=== PATIENT | female | born 1960 | race Caucasian/White ===

== ENCOUNTER 2016-07-16 08:51 | Emergency (ER) | payer MEDICAID ==
[~2016-07-16] VITALS: Wt 63.8 kg
[~2016-07-16 08:51] MED LIST: CEPH-443 PO; CETI10CA PO; FAMO-18 PO; LEVO112T2 PO; LOPE2CAP PO; MAG355OR15 PO; ONDA4TAB8 PO; PRED20TA PO
[2016-07-16] MEDS ORDERED: morphine 4 MG/ML VIAL IV STA (10:20)
[2016-07-16] MEDS ORDERED: SOD CHLORIDE 0.9% 1,000 ML IV STA (10:20)
[2016-07-16] MEDS ORDERED: ONDANSETRON 4 MG INJ IV STA (10:20)
[2016-07-16 10:41] LABS: ADD SCAN DIFF NO
--- NOTE | 2016-07-16 10:44 | RADRPT ---
PROCEDURE: XR Chest. CLINICAL INDICATION: Cough. Abdominal pain. TECHNIQUE: Single frontal view. COMPARISON: None. FINDINGS: The lungs are clear. The heart size is normal. There is no pleural effusion. There is no pneumothorax. IMPRESSION: 1. Normal chest radiograph. RPTAT: QQ .Modesto Marsh MD, MD Date Time Electronically viewed and signed by .Modesto Marsh MD, on 07/16/2016 10:43 .R/
[2016-07-16 10:45] LABS: ABNORMAL IP MESSAGE 1; BASOPHIL # 0.1 10^3/ul (0.0-0.1); BASOPHILS % 0.6 % (0.0-2.0); EOSINOPHILS # 0.2 10^3/ul (0.0-0.5); EOSINOPHILS % 1.9 % (0.0-7.0); HEMATOCRIT 41.4 % (37.0-47.0); HEMOGLOBIN 13.3 g/dl (12.0-16.0); LYMPHOCYTES # 0.4 10^3/ul (0.8-2.9); LYMPHOCYTES % 4.9 % (15.0-51.0); MEAN CORPUSCULAR HEMOGLOBIN 28.1 pg (29.0-33.0); MEAN CORPUSCULAR HGB CONC 32.1 g/dl (32.0-37.0); MEAN CORPUSCULAR VOLUME 87.5 fl (82.0-101.0); MEAN PLATELET VOLUME 11.8 fl (7.4-10.4); MONOCYTE # 0.7 10^3/ul (0.3-0.9); MONOCYTES % 7.9 % (0.0-11.0); NEUTROPHIL # 7.1 10^3/ul (1.6-7.5); NEUTROPHILS % 84.2 % (39.0-77.0); PLATELET COUNT 107 10^3/UL (140-415); RED BLOOD COUNT 4.73 10^6/ul (4.20-5.40); RED CELL DISTRIBUTION WIDTH 12.4 % (11.5-14.5); WHITE BLOOD COUNT 8.4 10^3/ul (4.8-10.8)
[2016-07-16 11:02] LABS: ALBUMIN 4.1 g/dl (3.3-4.9)
[2016-07-16 11:03] LABS: POTASSIUM 3.9 mmol/L (3.5-5.1)
[2016-07-16 11:05] LABS: BILIRUBIN,INDIRECT 0.8 mg/dl (0-1.1); BILIRUBIN,TOTAL 0.8 mg/dl (0.2-1.3); CREATININE 0.65 mg/dl (0.44-1.00)
[2016-07-16 11:06] LABS: ALBUMIN/GLOBULIN RATIO 1.41
--- NOTE | 2016-07-16 11:21 | RADRPT ---
PROCEDURE: CT abdomen and pelvis without contrast. CLINICAL INDICATION: Abdominal pain. TECHNIQUE: CT scan of the abdomen and pelvis without contrast was performed on a multi-slice CT [facility] . Sagittal and coronal reformatted images were obtained from the axial source images. DLP 523.1 mGycm. CTDIvol 9.7 mGy COMPARISON: None FINDINGS: The lung bases are clear. There is limited evaluation of the solid viscera from the lack of IV con trast. The kidneys are symmetric bilaterally with no evidence of renal or ureteral calculi. There is no hy dronephrosis or perinephric stranding. There is normal density of the liver with no gross focal lesion or biliary ductal dilatation. The gallbladder is unremarkable without inflammation. The spleen is at the upper limits of normal in size. The adrenal glands are within normal limits wi thout mass. The pancreas is unremarkable without focal lesion or surrounding inflammatory changes. There is no bowel obstruction or focal bowel inflammation. The appendix is unremarkable. There is a moderately diffusely fecal filled colon. There is no free air or free fluid. There are no enlarged lymph nodes. The aorta is unremarkable and there is no acute osseous abnormality. Degenerative changes are seen i n the lumbar spine. The uterus is absent. IMPRESSION: No evidence of renal or ureteral calculi or hydronephrosis. No evidence of bowel obstruction or inflammation. There is no appendicitis. There is a fecal fille d colon. RPTAT: AA .Oscar Shetty MD, MD Date Time Electronically viewed and signed by .Oscar Shetty MD, MD on 07/16/2016 11:20 .Lola/
[2016-07-16] MEDS ORDERED: OSELTAMIVIR 75 MG CAP PO ONE (11:30)
[2016-07-16] MEDS ORDERED: OSEL30CA PO (11:58)
[2016-07-16] MEDS ORDERED: IBUP800T25 PO (11:58)
[2016-07-16] MEDS ORDERED: ONDA4TAB14 PO (11:58)
--- NOTE | 2016-07-16 12:09 | ERD ---
ER Documentation Chief Complaint Date/Time DATE: 07/16/16 TIME: 12:05 Chief Complaint DIZZINESS SUDDEN ONSET SINCE LAST NIGHT. NO NEURO DEF. NAUSEA . NO INJURY HPI 55-year-old female. The patient has a history of lupus on steroids and immunomodulators. The patient presents with approximately 24 hours of symptoms that include multiple complaints. The patient describes generalized malaise, dry nonproductive cough, abdominal pain with cramping, mild nausea that is associated with nonbloody nonbilious emesis. A single loose watery stool. She denies any headache or rash. Mild lightheadedness but no vertigo. ROS All systems reviewed and are negative except as per history of present illness. Medications Home Meds Active Scripts Ondansetron (Ondansetron Odt) 4 Mg Tab.rapdis, 4 MG PO Q6H Y for NAUSEA AND/OR VOMITING, #10 TAB Prov:MADDY FITCH MD 07/16/16 Ibuprofen* (Motrin*) 800 Mg Tab, 800 MG PO Q6H Y for PAIN AND OR ELEVATED TEMP, #30 TAB Prov:MADDY FITCH MD 07/16/16 Oseltamivir Phosphate* (Tamiflu*) 30 Mg Capsule, 30 MG PO BID for 5 Days, CAP Prov:MADDY FITCH MD 07/16/16 Reported Medications Levothyroxine Sodium* (Synthroid*) 112 Mcg Tablet, 112 MCG PO AC BREAKFAST, TAB 03/28/15 Discontinued Scripts Cetirizine Hcl* (Zyrtec*) 10 Mg Capsule, 10 MG PO DAILY, #20 TAB Prov:JEANETTE MELVIN MD 06/01/15 Prednisone* (Prednisone*) 20 Mg Tab, 40 MG PO DAILY for 5 Days, TAB Prov:JEANETTE MELVIN MD 06/01/15 Cephalexin* (Keflex*) 500 Mg Capsule, 500 MG PO QID for 5 Days, CAP Prov:JEANETTE MELVIN MD 06/01/15 Famotidine* (Pepcid*) 20 Mg Tablet, 20 MG PO BID, #28 TAB Prov:YESICA KAN MD 03/28/15 Mag Hydrox/Al Hydrox/Simeth (Maalox Ms Liquid) 360 Ml Oral.susp, 2 ML PO TID, # 24 OZ Prov:YESICA KAN MD 03/28/15 Ondansetron Hcl* (Zofran*) 4 Mg Tablet, 4 MG PO Q6H for NAUSEA AND/OR VOMITING, #12 TAB Prov:YESICA KAN MD 03/28/15 Loperamide Hcl* (Imodium*) 2 Mg Capsule, 2 MG PO .AFTER EA LOOSE BM Y for DIARRHEA, #10 TAB Prov:YESICA KAN MD 03/28/15 Allergies Allergies: Coded Allergies: No Known Allergy (Unverified , 03/28/15) PMhx/Soc History of Surgery: No Anesthesia Reaction: No Hx Neurological Disorder: No Hx Respiratory Disorders: No Hx Cardiac Disorders: No Hx Psychiatric Problems: No Hx Miscellaneous Medical Probl: Yes (LUPUS) Hx Alcohol Use: No Hx Substance Use: No Hx Tobacco Use: No Smoking Status: Never smoker FmHx Family History: No diabetes Physical Exam Vitals Vital Signs Date Time Temp Pulse Resp B/P Pulse Ox O2 Delivery O2 Flow Rate FiO2 07/16/16 09:05 98.8 92 20 154/74 98 Physical Exam General: Slightly ill-appearing but no significant distress Head: Normocephalic, atraumatic. Eyes: Pupils equally reactive, EOM intact ENT: Moist mucous membranes Neck: Supple, no lymphadenopathy Respiratory: Lungs clear bilaterally, no distress Cardiovascular: RRR, no murmurs, rubs, or gallops Abdominal: Soft, mild diffuse tenderness without rebound or guarding : Deferred MSK: No edema, no unilateral swelling, 5/5 strength Neurologic: Alert and oriented, moving all extremities, normal speech, no focal weakness, no cerebellar signs, no meningismus Skin: No rash Psych: Normal mood Result Diagram: 07/16/16 1035 07/16/16 1030 Results 24 hrs Laboratory Tests Test 07/16/16 10:30 07/16/16 10:35 Alanine Aminotransferase (ALT/SGPT) 66IU/L Albumin 4.1g/dl Albumin/Globulin Ratio 1.41 Alkaline Phosphatase 75IU/L Anion Gap 17 Aspartate Amino Transf (AST/SGOT) 70IU/L Blood Urea Nitrogen 10mg/dl Calcium Level 9.0mg/dl Carbon Dioxide Level 28mmol/L Chloride Level 103mmol/L Creatinine 0.65mg/dl Direct Bilirubin 0.00mg/dl Globulin 2.90g/dl Glucose Level 127mg/dl Indirect Bilirubin 0.8mg/dl Lipase 69U/L Potassium Level 3.9mmol/L Sodium Level 144mmol/L Total Bilirubin 0.8mg/dl Total Protein 7.0g/dl Basophils # 0.110^3/ul Basophils % 0.6% Eosinophils # 0.210^3/ul Eosinophils % 1.9% Hematocrit 41.4% Hemoglobin 13.3g/dl Lymphocytes # 0.410^3/ul Lymphocytes % 4.9% Mean Corpuscular Hemoglobin 28.1pg Mean Corpuscular Hemoglobin Concent 32.1g/dl Mean Corpuscular Volume 87.5fl Mean Platelet Volume 11.8fl Monocytes # 0.710^3/ul Monocytes % 7.9% Neutrophils # 7.110^3/ul Neutrophils % 84.2% Nucleated Red Blood Cells # 0.010^3/ul Nucleated Red Blood Cells % 0.0/100WBC Platelet Count 05892^3/UL Red Blood Count 4.7310^6/ul Red Cell Distribution Width 12.4% White Blood Count 8.410^3/ul Current Medications Medications (Trade) Dose Ordered Sig/Twyla Route PRN Reason Start Time Stop Time Status Last Admin Dose Admin Sodium Chloride (NS) 1,000 ml @ 1,000 mls/hr Q1H STAT IV 07/16/16 10:20 07/16/16 11:19 DC 07/16/16 10:42 Morphine Sulfate (morphine) 4 mg ONCE STAT IV 07/16/16 10:20 07/16/16 10:21 DC 07/16/16 10:42 Ondansetron HCl (Zofran Inj) 4 mg ONCE STAT IV 07/16/16 10:20 07/16/16 10:21 DC 07/16/16 10:42 Oseltamivir Phosphate (Tamiflu) 75 mg ONCE ONCE PO 07/16/16 11:30 07/16/16 11:31 DC 07/16/16 11:24 Procedures/MDM EKG, MONITORS, & DIAGNOSTIC IMAGING: Chest x-ray: I reviewed and interpreted a 1 view of the chest Mediastinum: No enlargement Cardiac silhouette: No cardiomegaly Airspace: Clear lung del angel bilaterally without evidence of pneumothorax Bones: No evidence of fracture CT abdomen and pelvis: IMPRESSION: No evidence of renal or ureteral calculi or hydronephrosis. No evidence of bowel obstruction or inflammation. There is no appendicitis. There is a fecal filled colon. RPTAT: AA LAB INTERPRETATION: Positive influenza A MEDICAL DECISION MAKING: The patient presents with flulike symptoms including generalized malaise, subjective fevers, myalgias. The patient most likely has influenza however given her lupus, immune compromised state broad differential exists including acute intra-abdominal process, acute bacterial infection or pneumonia. For these reasons broad workup was initiated to evaluate and rule out these processes. ER COURSE: The patient was given IV fluids and pain medication with dramatic improvement of her symptoms. Influenza A positive. Patient initiated on Tamiflu. While the patient is slightly high risk given her immune compromised state the patient is otherwise well-appearing, afebrile with normal white count. I discussed inpatient versus outpatient management. Given the patient's age I believe she will likely do well as an outpatient. I did however discuss return precautions including worsening symptoms, inability to tolerate oral intake. Patient verbalized understanding. She has good outpatient follow-up. A trial of outpatient management would be reasonable. I kept the patient and/or family informed of laboratory and diagnostic imaging results throughout the emergency room course. DISPOSITION PLAN: We discussed follow up with the patient's primary care doctor within 24 to 48 hours as needed. We also discussed return to the emergency room for worsening symptoms or worsening condition. Discharge Medications: Tamiflu, Motrin, Zofran Departure Diagnosis: Primary Impression: Influenza Additional Impressions: Acute viral syndrome Nausea and vomiting Vomiting type: unspecified Vomiting Intractability: unspecified Qualified Code: R11.2 - Nausea and vomiting, intractability of vomiting not specified, unspecified vomiting type History of lupus Condition: Stable Patient Instructions: Influenza (Adult) Referrals: [facility] Usted se valerio hecho un examen mdico de control que le indica que no est en frankie condicin que requiera tratamiento urgente en el Departamento de Emergencia. Un estudio ms profundo y el tratamiento de riggins condicin pueden esperar sin ningn riesgo hasta que usted sea atendida/o en el consultorio de riggins mdico o frankie cl rachel. Es responsabilidad suya arreglar frankie dyllan para el seguimiento del jason. MANEJO DE CONDICIONES NO URGENTES EN EL FUTURO 1) Si usted tiene un mdico de atencin primaria: Usted debera llamar a riggins mdico de atencin primaria antes de venir al departamento de emergencia. Despus de las horas de consultorio, riggins doctor o riggins asociado/a est disponible por telfono. El mdico o enfermero de gene en el servicio telefnico puede asesorarle por harini medio para atender el problema, o jason contrario se puede programar frankie dyllan. 2) Si usted no tiene un mdico de atencin primaria: Llame al mdico o clnica de referencia que aparece abajo regina las horas de consultorio para hacer frankie dyllan para que le vean. CLINICAS: [place] [id number] [phone] [facility] [phone] [address] [facility]. [facility] [phone] [address] [facility] [place] [id number] [phone] [facility] [place] [phone] [facility]. [phone] [facility] () Usted se valerio hecho un examen mdico de control que le indica que no est en frankie condicin que requiera tratamiento urgente en el Departamento de Emergencia. Un estudio ms profundo y el tratamiento de riggins condicin pueden esperar sin ningn riesgo hasta que usted sea atendida/o en el consultorio de riggins mdico o frankie cl rachel. Es responsabilidad suya arreglar frankie dyllan para el seguimiento del jason. MANEJO DE CONDICIONES NO URGENTES EN EL FUTURO 1) Si usted tiene un mdico de atencin primaria: Usted debera llamar a riggins mdico de atencin primaria antes de venir al departamento de emergencia. Despus de las horas de consultorio, riggins doctor o riggins asociado/a est disponible por telfono. El mdico o enfermero de gene en el servicio telefnico puede asesorarle por harini medio para atender el problema, o jason contrario se puede programar frankie dyllan. 2) Si usted no tiene un mdico de atencin primaria: Llame al mdico o condado institucions de referencia que aparece abajo regina las horas de consultorio para hacer frankie dyllan para que le vean. SI USTED NO PUEDE PAGAR PARA RUMA UN MEDICO puede ir a: [facility] [address] [place] [address] [facility] [address] [place] [address] [facility] [address] [place] [address] PARA [facility] [address] [place] [place], [place] [id number] Additional Instructions: Return for any worsening symptoms, inability to tolerate oral intake. Llame al doctor nombrado abajo (Referral Sources) MAANA y jose angel frankie DYLLAN PARA DENTRO DE FRANKIE SEMANA. Dgale a la secretaria que nosotros le instruimos hacer esta dyllan.Avise o llame si riggins condicin se empeora antes de la dyllan. MADDY FITCH MD Jul 16, 2016 12:09
[2016-07-16 12:21] VITALS: BP 140/75; PULSE 90; RESP 18; TEMP 99.5
== END 2016-07-16 12:23 | disposition home or self-care (01) ==
LOC: E/R 08:51
DX: J10.1 Influenza due to other identified influenza virus with other respiratory manifestations (principal); R11.2 Nausea with vomiting, unspecified; B34.9 Viral infection, unspecified; M32.10 Systemic lupus erythematosus, organ or system involvement unspecified; R42 Dizziness and giddiness
CPT/HCPCS: 36415; 71010; 74176; 80053; 83690; 85025; 96374; 96375; J2270; J2405; J7030; Z7502; Z7610; 93005

== ENCOUNTER 2018-07-06 08:07 | Emergency (ER) | payer MEDICAID ==
[~2018-07-06] VITALS: Ht 160 cm; Wt 75.0 kg
[~2018-07-06 08:07] MED LIST changes: -CEPH-443 PO; -CETI10CA PO; -FAMO-18 PO; +IBUP800T48 PO; -LOPE2CAP PO; -MAG355OR15 PO; +ONDA4TAB14 PO; -ONDA4TAB8 PO; +OSEL30CA PO; -PRED20TA PO
[2018-07-06 08:09] VITALS: Ht 160 cm; Wt 75.0 kg
[2018-07-06] MEDS ORDERED: KETOROLAC 30 MG INJ IV STA (08:42)
--- NOTE | 2018-07-06 09:07 | ERD ---
ER Documentation Chief Complaint Chief Complaint pt is bib self with c/o left side abd , back, leg pain x 1 wk HPI During the patient's encounter translation services were utilized Language: Hungarian Source: In person 57-year-old female presents to the emergency room complaining of abdominal pain. It is left-sided to the left lower quadrant and constant to the left flank. She also notes multiple days of looser stools. She took Imodium without relief. No recent travel sick contacts or antibiotics. The pain is moderate and c onstant at this time. No dysuria urgency or frequency or hematuria. ROS All systems reviewed and are negative except as per history of present illness. Medications Home Meds Active Scripts Dicyclomine HCl (Dicyclomine HCl) 10 Mg Capsule, 10 MG PO TID PRN for ABDOMINAL CRAMPING, #20 CAP Prov:MADDY FITCH MD 07/06/18 Ondansetron (Ondansetron Odt) 4 Mg Tab.rapdis, 4 MG PO Q6H PRN for NAUSEA AND/OR VOMITING, #10 TAB Prov:MADDY FITCH MD 07/16/16 Ibuprofen* (Motrin*) 800 Mg Tab, 800 MG PO Q6H PRN for PAIN AND OR ELEVATED TEMP, #30 TAB Prov:MADDY FITCH MD 07/16/16 Oseltamivir Phosphate* (Tamiflu*) 30 Mg Capsule, 30 MG PO BID for 5 Days, CAP Prov:MADDY FITCH MD 07/16/16 Reported Medications Levothyroxine Sodium* (Synthroid*) 112 Mcg Tablet, 112 MCG PO AC BREAKFAST, TAB 03/28/15 Allergies Allergies: Coded Allergies: No Known Allergy (Unverified , 03/28/15) PMhx/Soc History of Surgery: No Anesthesia Reaction: No Hx Neurological Disorder: No Hx Respiratory Disorders: No Hx Cardiac Disorders: No Hx Psychiatric Problems: No Hx Miscellaneous Medical Probl: Yes (LUPUS) Hx Alcohol Use: No Hx Substance Use: No Hx Tobacco Use: No FmHx Family History: No diabetes Physical Exam Vitals Vital Signs Date Temp Pulse Resp B/P (MAP) Pulse Ox O2 O2 Flow FiO2 Time Delivery Rate 07/06/18 97.5 79 18 202/91 98 08:09 (128) Physical Exam General: Well developed, well nourished, no acute distress Head: Normocephalic, atraumatic. Eyes: Pupils equally reactive, EOM intact ENT: Moist mucous membranes Neck: Supple, no lymphadenopathy Respiratory: Lungs clear bilaterally, no distress Cardiovascular: RRR, no murmurs, rubs, or gallops Abdominal: Soft, focal tenderness to left lower quadrant without rebound or guarding, no CVAT : Deferred MSK: No edema, no unilateral swelling, 5/5 strength Neurologic: Alert and oriented, moving all extremities, normal speech, no focal weakness, no cerebellar signs Skin: No rash Psych: Normal mood Result Diagram: 07/06/1891907/06/1820 Results 24 hrs Laboratory Tests Test 07/06/18 08:26 07/06/18 09:20 Bedside Urine pH (LAB) 6.5 Bedside Urine Protein (LAB) Trace Bedside Urine Glucose (UA) Negative Bedside Urine Ketones (LAB) Negative Bedside Urine Blood Negative Bedside Urine Nitrite (LAB) Negative Bedside Urine Leukocyte Esterase (L Negative White Blood Count 2.8 10^3/ul Red Blood Count 4.83 10^6/ul Hemoglobin 13.0 g/dl Hematocrit 40.2 % Mean Corpuscular Volume 83.2 fl Mean Corpuscular Hemoglobin 26.9 pg Mean Corpuscular Hemoglobin Concent 32.3 g/dl Red Cell Distribution Width 12.4 % Platelet Count 114 10^3/UL Mean Platelet Volume 11.7 fl Immature Granulocytes % 0.700 % Neutrophils % 52.3 % Lymphocytes % 28.6 % Monocytes % 13.1 % Eosinophils % 4.2 % Basophils % 1.1 % Nucleated Red Blood Cells % 0.0 /100WBC Immature Granulocytes # 0.020 10^3/ul Neutrophils # 1.5 10^3/ul Lymphocytes # 0.8 10^3/ul Monocytes # 0.4 10^3/ul Eosinophils # 0.1 10^3/ul Basophils # 0.0 10^3/ul Nucleated Red Blood Cells # 0.0 10^3/ul Urine Color YELLOW Urine Clarity SLIGHTLY CLOUDY Urine pH 6.0 Urine Specific Cranberry 1.014 Urine Ketones NEGATIVE mg/dL Urine Nitrite NEGATIVE mg/dL Urine Bilirubin NEGATIVE mg/dL Urine Urobilinogen NEGATIVE mg/dL Urine Leukocyte Esterase TRACE Julianna/ul Urine Microscopic RBC 1 /HPF Urine Microscopic WBC 2 /HPF Urine Squamous Epithelial Cells FEW /HPF Urine Hemoglobin NEGATIVE mg/dL Urine Glucose NEGATIVE mg/dL Urine Total Protein NEGATIVE mg/dl Sodium Level 143 mmol/L Potassium Level 3.4 mmol/L Chloride Level 110 mmol/L Carbon Dioxide Level 27 mmol/L Anion Gap 6 Blood Urea Nitrogen 10 mg/dl Creatinine 0.63 mg/dl Est Glomerular Filtrat Rate mL/min > 60 mL/min Glucose Level 89 mg/dl Calcium Level 9.2 mg/dl Total Bilirubin 0.2 mg/dl Direct Bilirubin 0.00 mg/dl Indirect Bilirubin 0.2 mg/dl Aspartate Amino Transf (AST/SGOT) 19 IU/L Alanine Aminotransferase (ALT/SGPT) 21 IU/L Alkaline Phosphatase 58 IU/L Total Protein 6.5 g/dl Albumin 3.9 g/dl Globulin 2.60 g/dl Albumin/Globulin Ratio 1.50 Lipase 57 U/L Current Medications Medications Dose Sig/Twyla Start Time Status Last (Trade) Ordered Route PRN Stop Time Admin Dose Reason Admin Ketorolac 30 mg ONCE STAT 07/06/18 DC 07/06/18 Tromethamine IV 08:42 07/06/18 09:29 (Toradol) 08:43 Procedures/MDM EKG, MONITORS, & DIAGNOSTIC IMAGING: CT abdomen and pelvis: IMPRESSION: No evidence of urolithiasis, obstructive uropathy, diverticulitis or appendi citis. Hysterectomy. LAB INTERPRETATION: I reviewed the laboratory testing and it shows no evidence of acute process MEDICAL DECISION MAKING: Patient with left-sided abdominal pain, consider possible diverticulitis versus viral diarrheal illness. Lower concern for ureterolithiasis. CT imaging would be indicated. No evidence of acute aortic process. ER COURSE: * Laboratory testing and diagnostic imaging is unrevealing. The symptoms are much improved with IV fluids and Toradol. This is likely a viral diarrheal illness. Symptom control be appropriate with Bentyl. No indication for antibiotics. Patient can be safely discharged with close return precautions. CONSULTATION: None DISPOSITION PLAN: The patient does not have an identifiable emergent medical condition that warrants inpatient hospitalization at this time. The patient is deemed safe for discharge with outpatient follow-up. We discussed follow up with the patient's primary care doctor within 24 to 48 hours as needed. We also discussed return to the emergency room for worsening symptoms or worsening condition. Outpatient referral: None required Discharge Medications: Bentyl Departure Diagnosis: Primary Impression: Abdominal pain Abdominal location: left lower quadrant Qualified Codes: R10.32 - Left lower quadrant pain Additional Impression: Gastroenteritis Condition: Stable MADDY FITCH MD Jul 06, 2018 09:07
[2018-07-06] MEDS ORDERED: DICY10CA40 PO (10:09)
[2018-07-06 10:43] VITALS: BP 186/86; PULSE 86; RESP 20
== END 2018-07-06 10:45 | disposition home or self-care (01) ==
LOC: E/R 08:07
DX: K52.9 Noninfective gastroenteritis and colitis, unspecified (principal); R40.2142 Coma scale, eyes open, spontaneous, at arrival to emergency department; R40.2362 Coma scale, best motor response, obeys commands, at arrival to emergency department; R40.2252 Coma scale, best verbal response, oriented, at arrival to emergency department
CPT/HCPCS: 74176; 80053; 81001; 81003; 83690; 85025; J1885; 36415; 96374